=== PATIENT | female | born 2000 ===

== ENCOUNTER 2018-12-25 17:21 | Emergency (ER) | payer OTHER ==
[~2018-12-25] VITALS: Ht 162.6 cm; Wt 57.6 kg
[2018-12-25 17:40] LABS: BASOPHILS ABSOLUTE AUTO 0.03 K/mm3 (0.00-0.23); BASOPHILS PERCENT AUTO 0 % (0-2); EOSINOPHILS PERCENT AUTO 0 % (0-6); Hematocrit 34.3 % (33.0-51.0); Hemoglobin 11.1 g/dL (11.5-16.0); IMMATURE GRAN PERCENT AUTO 1 % (0-1); LYMPHOCYTES PERCENT AUTO 5 % (21-46); MONOCYTES ABSOLUTE AUTO 1.54 K/mm3 (0.16-1.47); MONOCYTES PERCENT AUTO 9 % (4-13); Mean Corpuscular HGB 29.8 pg (26.0-34.0); Mean Corpuscular HGB Conc 32.4 g/dL (31.5-36.5); Mean Corpuscular Volume 92 fL (80-100); Mean Platelet Volume 10.1 fL (9.1-12.4); NEUTROPHILS ABSOLUTE AUTO 15.48 K/mm3 (1.96-9.15); NEUTROPHILS PERCENT AUTO 86 % (41-73); Platelet Count 213 K/mm3 (150-400); RDW Coefficient Variation 14.4 % (11.7-14.2); RDW Standard Deviation 48.7 fL (35.1-46.3); Red Blood Cell Count 3.72 M/mm3 (3.80-5.20); White Blood Cell Count 17.95 K/mm3 (4.00-11.30)
[2018-12-25 17:59] LABS: International Normalized Ratio 1.02; Prothrombin Time Results 10.8 Sec (9.7-11.5)
[2018-12-25 18:06] LABS: Ethanol (Alcohol), Blood, Med <3 mg/dL
[2018-12-25 18:07] LABS: Alanine Aminotransfer (ALT/SGP 411 U/L (12-78); Albumin, Blood 3.3 g/dL (3.4-5.0); Albumin/Globulin Ratio 1.1 (0.8-1.8); Alk Phos 71 U/L (50-136); Anion Gap 9 mmol/L (6-16); Bilirubin, Total 0.6 mg/dL (0.1-1.0); Blood Urea Nitrogen 16 mg/dL (8-24); Bun/Creatinine Ratio 6.4 (12.0-20.0); CO2, Blood 23 mmol/L (21-32); Calcium, Blood 8.6 mg/dL (8.5-10.1); Chloride, Blood 110 mmol/L (98-108); Creatinine, Blood 2.49 mg/dL (0.40-1.00); Glomerular Filtration Rate 26 (60-); Glucose, Blood 110 mg/dL (70-99); Sodium, Blood 142 mmol/L (136-145); Total Protein, Blood 6.3 g/dL (6.4-8.2)
[2018-12-25 18:15] LABS: Calcium, Ionized (POC) 1.13 mmol/L (1.10-1.46); Chloride (POC) 108 mmol/L (98-108); Creatinine (POC) 2.9 mg/dL (0.6-1.0); Glucose (ISTAT POC) 116 mg/dL (70-99); Hemoglobin (POC) 11.9 g/dL (12.0-16.0); Potassium (POC) 4.8 mmol/L (3.5-5.5); Sodium (POC) 140 mmol/L (135-148); Total CO2 (POC) 22 mmol/L (21-32)
[2018-12-25 18:17] LABS: Aspartate Aminotrans (AST/SGOT 1056 U/L (12-37); Beta HCG, Quantitative, Serum <1 mIU/mL (0-3)
[2018-12-25 19:03] LABS: CPK Creatine Kinase 8938 U/L (26-193)
[2018-12-25 19:18] LABS: Creatine Kinase MB 57.1 ng/mL (0.0-3.6); Creatine Kinase MB Index 0.6 (0.0-4.0)
== END 2018-12-25 21:02 | disposition short-term general hospital (02) ==
LOC: ER 17:21
PROVIDERS: Emergency Medicine
DX: S22.069A Unspecified fracture of T7-T8 vertebra, initial encounter for closed fracture (principal); S22.079A Unspecified fracture of T9-T10 vertebra, initial encounter for closed fracture; S32.029A Unspecified fracture of second lumbar vertebra, initial encounter for closed fracture; S32.472A Displaced fracture of medial wall of left acetabulum, initial encounter for closed fracture; S42.422A Displaced comminuted supracondylar fracture without intercondylar fracture of left humerus, initial encounter for closed fracture; S36.115A Moderate laceration of liver, initial encounter; S36.031A Moderate laceration of spleen, initial encounter; S27.322A Contusion of lung, bilateral, initial encounter; S27.2XXA Traumatic hemopneumothorax, initial encounter; N28.0 Ischemia and infarction of kidney; Z91.040 Latex allergy status; F17.200 Nicotine dependence, unspecified, uncomplicated; W17.89XA Other fall from one level to another, initial encounter
CPT/HCPCS: 29105; 32551; 51702; 70450; 71045; 71260; 72125; 73070; 74177; 80047; 80053; 82550; 82553; 83690; 84702; 85014; 85025; 85610; 85730; 86850; 86900; 86901; 96374-59; 96375-59; 99285-25; G0480; J1170; J2250; J2405; J3010; J7120; Q9967